=== PATIENT | female | born 1960 | race Caucasian/White ===

== ENCOUNTER → 2023-03-18 | Outpatient (CLI) | payer OTHER, SELFPAY ==
--- NOTE | 2023-03-18 09:47 | ECHOD_ITS ---
Reason For Study: HTN Procedure This was a 2D Doppler, Color Flow transthoracic echocardiogram. Exam performed in department. Left Ventricle Normal LV size. Left ventricular systolic function is normal. The estimated ejection fraction is 68 %. Normal diastology for age. No regional wall motion abnormalities noted. Right Ventricle Normal RV size. Normal systolic function. Atria Normal left atrium. Normal right atrium. Mitral Valve Normal mitral valve. Tricuspid Valve Normal tricuspid valve. Mild tricuspid valve insufficiency. Pulmonary artery systolic pressure is 36 mmHg. Aortic Valve Normal aortic valve. Trisinus/trileaflet aortic valve. Pulmonic Valve Normal pulmonic valve. Great Vessels Normal aortic root. The pulmonary artery is normal size. Normal inferior vena cava. Pericardium/Pleural No pericardial effusion. MMode/2D Measurements & Calculations LVIDd: 4.3 cm IVSd: 0.86 cm Ao root diam: 3.0 cm LVIDs: 2.6 cm LVPWd: 0.89 cm LA dimension: 3.9 cm RVDd: 4.4 cm FS: 39.7 % LAV(MOD-bp): 60.6 ml LVAd ap4: 29.8 cm2 SV(MOD-sp4): 60.1 ml LAV(MOD-bp) Indexed: 31.0 ml/m2 LVLd ap4: 7.9 cm LAV(MOD-sp2): 55.9 ml EDV(MOD-sp4): 89.9 ml LAV(MOD-sp4): 58.7 ml EDV(sp4-el): 94.8 ml LVAs ap4: 15.1 cm2 LVLs ap4: 6.3 cm ESV(MOD-sp4): 29.8 ml ESV(sp4-el): 30.6 ml EF(MOD-sp4): 66.8 % EF(sp4-el): 67.7 % SV(sp4-el): 64.2 ml LA A4 area: 19.8 cm2 RA A4 area: 20.3 cm2 TAPSE: 2.0 cm Time Measurements MV dec time: 0.18 sec Doppler Measurements & Calculations MV E max morris: 64.1 cm/sec Lat Peak E' Morris: 12.5 cm/sec Med Peak E' Morris: 9.2 cm/sec MV A max morris: 62.7 cm/sec E/E' lat: 5.1 E/E' med: 6.9 MV E/A: 1.0 MV V2 max: 62.5 cm/sec MV P1/2t max morris: 63.4 cm/sec Ao V2 max: 125.5 cm/sec MV max P.6 mmHg MV P1/2t: 57.2 msec Ao max P.3 mmHg MV V2 mean: 37.1 cm/sec MV dec slope: 324.6 cm/sec2 Ao V2 mean: 86.9 cm/sec MV mean P.64 mmHg Ao mean P.4 mmHg MV V2 VTI: 20.7 cm MVA(P1/2t): 3.8 cm2 Ao V2 VTI: 26.3 cm AV (velocity ratio): 1.0 LV V1 max: 112.8 cm/sec PA V2 max: 143.6 cm/sec TR max morris: 284.6 cm/sec LV V1 max P.1 mmHg TR max P.4 mmHg LV V1 mean P.7 mmHg LV V1 mean: 77.5 cm/sec LV V1 VTI: 27.5 cm ECHO/Echo Complete Interpretation Summary Normal LV size. Left ventricular systolic function is normal. The estimated ejection fraction is 68 %. Pulmonary artery systolic pressure is 36 mmHg. Ordering Physician: Mya Lindsey Referring Physician: Mya Lindsey Performed By: Que [facility]
== END | disposition home or self-care (01) ==
PROVIDERS: PCP Nurse Practitioner Family; Referring Provider Nurse Practitioner Family; Visit Provider Nurse Practitioner Family
DX: R01.1 Cardiac murmur, unspecified (principal); I27.20 Pulmonary hypertension, unspecified; I10 Essential (primary) hypertension; E66.9 Obesity, unspecified
CPT/HCPCS: 93306